=== PATIENT | female | born 1980 ===

== ENCOUNTER → 2020-05-02 08:33 | Outpatient (BNVA) | payer OTHER, SELFPAY | PROVIDERS: Visit Provider Surgery | DX: Z01.818 Encounter for other preprocedural examination (principal); E66.01 Morbid (severe) obesity due to excess calories; E11.9 Type 2 diabetes mellitus without complications; K21.9 Gastro-esophageal reflux disease without esophagitis; Z71.3 Dietary counseling and surveillance; Z86.19 Personal history of other infectious and parasitic diseases; Z79.84 Long term (current) use of oral hypoglycemic drugs | CPT/HCPCS: 99202 ==

== ENCOUNTER → 2020-05-09 08:26 | Outpatient (BNVA) | payer OTHER, SELFPAY | PROVIDERS: PCP Physician Assistant Medical; Visit Provider Dietitian, Registered | DX: Z76.89 Persons encountering health services in other specified circumstances (principal) ==

== ENCOUNTER 2020-05-15 09:50 | Outpatient (REF) | payer OTHER, SELFPAY ==
[2020-05-16 14:42] LABS: H Pylori Breath Test NOT DETECTED (NOT DETECTED)
== END 2020-05-15 09:51 | disposition home or self-care (01) ==
LOC: HO.LNP 09:50
PROVIDERS: PCP Internal Medicine; Referring Provider Internal Medicine; Visit Provider Physician Assistant
DX: Z01.818 Encounter for other preprocedural examination (principal); Z11.0 Encounter for screening for intestinal infectious diseases
CPT/HCPCS: 83013; 99211

== ENCOUNTER 2020-05-21 14:00 | Outpatient (REF) | payer OTHER, SELFPAY ==
--- NOTE | 2020-05-21 13:24 | PFT_ITS ---
Forced vital capacity, FEV1, OYG43-65 are normal. MVV moderately reduced. Post bronchodilator therapy, there is no change. Total lung capacity normal. Residual volume moderately decreased. Diffusion capacity normal. CONCLUSION: Normal pulmonary function test except for decreased MVV and decreased residual volume, both being secondary to obesity. MD JENNIFER Lang/MODL / [id number]
== END 2020-05-21 14:01 | disposition home or self-care (01) ==
LOC: HO.RESP 14:00
PROVIDERS: PCP Physician Assistant Medical; Visit Provider Surgery
DX: J45.41 Moderate persistent asthma with (acute) exacerbation (principal); Z01.818 Encounter for other preprocedural examination; E66.01 Morbid (severe) obesity due to excess calories
CPT/HCPCS: 94060; 94727; 94729